=== PATIENT | female | born 1940 | race Caucasian/White ===

== ENCOUNTER → 2016-07-02 | Outpatient (CLI) | payer OTHER ==
[~2016-07-02] MED LIST: FISH OIL 1,0001 EAC3 PO; SYNTHROID PO; WOMEN'S DAILY1 EAC1 PO
--- NOTE | ~2016-07-02 | US6 ---
[facility] A Service of [facility] & [facility] RADIOLOGY TEXT RESULTS PATIENT: PAVEL SANTILLAN LOCATION: [facility] : 38 UNIT #: [id number] AGE: [address]: Mau Poon MD SEX: F ORDER DR: [id number] [address] [address] [id number] O MR#: [id number] Acc #: [id number] NAME: PAVEL SANTILLAN : 1940 SEX: F STUDY DATE/TIME: 07/02/2016 10:45 UNIT: [facility] ROOM: STUDY DESCRIPTION: US Abdominal Limited Attending Physician: Mau Poon M.D. Referring Physician: Mau Poon M.D. Ordering Physician: Mau Poon M.D. Primary Care Physician: Mau Poon M.D. MEDICAL IMAGING REPORT This report is preliminary unless electronic signature is present. EXAM Right upper quadrant ultrasound 07/02/2016 HISTORY Abnormally elevated liver enzymes for 5 days. FINDINGS Ultrasound examination of the gallbladder is negative. There is no cholelithiasis, gallbladder wall thickening, or bile duct dilatation. The visualized liver is negative. IMPRESSION Negative gallbladder ultrasound examination. Dictated by... Danilo Quintero M.D. THIS IS AN ELECTRONICALLY VERIFIED REPORT Danilo Quintero M.D. at 07/05/2016 12:18 PM KRT/pcl TD: 07/02/2016 21:57 JOB #: [id number] MEDICAL IMAGING REPORT Page 1 of 1
== END | disposition home or self-care (01) ==
LOC: SGUS 10:30
DX: R94.5 Abnormal results of liver function studies (principal)
CPT/HCPCS: 76705